=== PATIENT | female | born 1975 | race Caucasian/White ===

== ENCOUNTER → 2024-08-21 09:56 | Outpatient (BNVA) | payer OTHER, SELFPAY | PROVIDERS: PCP Internal Medicine; Visit Provider Internal Medicine | DX: Z00.01 Encounter for general adult medical examination with abnormal findings (principal); F41.1 Generalized anxiety disorder; F33.42 Major depressive disorder, recurrent, in full remission; E66.09 Other obesity due to excess calories; Z68.32 Body mass index [BMI] 32.0-32.9, adult; Z71.3 Dietary counseling and surveillance | CPT/HCPCS: 96127; 99212; 99396 ==

== ENCOUNTER → 2024-09-18 13:34 | Outpatient (BNV) | payer OTHER, SELFPAY | PROVIDERS: PCP Internal Medicine; Visit Provider Internal Medicine | DX: Z12.31 Encounter for screening mammogram for malignant neoplasm of breast (principal) | CPT/HCPCS: 77063; 77067 ==

== ENCOUNTER 2024-10-10 10:19 | Outpatient (REF) | payer OTHER, SELFPAY ==
--- NOTE | ~2024-10-10 | US_ITS ---
EXAMINATION: MM DIAGNOSTIC DIGITAL BREAST TOMOSYNTHESIS, RIGHT CLINICAL INFORMATION: Call back from screening for new oval mass in the retroareolar region of the right breast. COMPARISON: Mammography: [facility] on PACS. TECHNIQUE: Digital breast tomosynthesis is performed in both the craniocaudal and mediolateral oblique views along with computer-aided detection (CAD). Synthesized 2D images are generated from the tomosynthesis. FINDINGS: There are scattered areas of fibroglandular density (ACR BI-RADS breast composition Category b). There is a 2 cm oval mass in the retroareolar region of the right breast anterior depth. No suspicious calcifications or other abnormal findings. Targeted color Doppler ultrasound demonstrates a hypoechoic oval circumscribed solid mass at 3:00 retroareolar region measuring 19 x 16 x 13 mm with some internal vascular flow. This correlates with the mammographic oval mass. US/US breast RT limited mamm only IMPRESSION: New oval mass at 3:00 retroareolar region of the right breast. Six-month follow-up versus ultrasound-guided core needle biopsy was offered to the patient. The patient prefers ultrasound-guided core needle biopsy at this time for confirmation. The findings and recommendations were discussed with the patient the procedure will be scheduled. ASSESSMENT: BI-RADS BI-RADS 4 - Suspicious finding RECOMMENDATION: Biopsy recommended Results were provided to the patient at time of visit by the technologist. This patient's information was entered into a reminder system with a target due date for their next mammogram. Electronically signed by: Keira Hills DO 10/10/2024 12:48 PM EDT
== END 2024-10-10 10:20 | disposition home or self-care (01) ==
LOC: HO.MAMMO 10:19
PROVIDERS: PCP Internal Medicine; Visit Provider Internal Medicine
DX: R92.2 Inconclusive mammogram (principal)
CPT/HCPCS: 76642; 77061; 77065

== ENCOUNTER → 2024-10-10 10:30 | Outpatient (BNV) | payer OTHER, SELFPAY | PROVIDERS: PCP Internal Medicine; Visit Provider Internal Medicine | DX: R92.8 Other abnormal and inconclusive findings on diagnostic imaging of breast (principal) | CPT/HCPCS: 76642; 77061; 77065 ==

== ENCOUNTER 2024-10-16 08:22 | Outpatient (AMB) | payer OTHER, SELFPAY ==
[2024-10-16 08:25] VITALS: BP 112/61; PULSE 59; O2SAT 97; BMI 33.6
--- NOTE | 2024-10-16 08:25 | A.OFFVIS_ITS ---
Vital Signs 10/16/24 08:25 Height 5 ft 2 in Weight 183 lb 13.848 oz BMI 33.6 BP 112/61 Blood Pressure Location Lt brachial Position Sitting Pulse 59 Pulse Source Pulse Oximeter Pulse Oximetry (%) 97 Oxygen Delivery Method Room Air Intake Visit Reasons: Rt Breast US BX 3 o'clock mass Intake Note: Patient is seen in office for ultrasound biopsy CONSULT right breast 3 o'clock mass. Bx sched:10/17/24 @8am Allergies bee pollen [BEE STINGS] Allergy (Severe, Verified 10/16/24 08:26) SWELLING Environmental Allergy (Intermediate, Uncoded 10/16/24 08:26) Nose Bleed Medication List - Last Reconciled 10/16/24 by Fermin Jeter MD fluoxetine 20 mg PO DAILY fluticasone propionate 50 mcg/actuation 1 spray intranasal BID HPI Comments Details: 49-year-old female presenting with a newly detected right breast mass. On 09/18/2024, she underwent a mammogram which identified a circumscribed, oval mass in the retroareolar region of her right breast, with no associated suspicious calcifications. Subsequent imaging studies conducted on 10/10/2024, including an ultrasound, corroborated the presence of this new oval mass precisely located at the 3 o'clock retroareolar region in the right breast. Given the recent detection of this mass, the patient was presented with the option of a 6-month monitoring period or proceeding with a diagnostic needle biopsy. The mass was classified under BI-RADS category 4, indicating a suspicious abnormality warranting further investigation. She denies a previous history of breast problems or breast surgery. Family history is negative for breast cancer or ovarian cancer. Menarche was at age 16, she is , 1st child born when she was 35. Breastfed both her children. She denies a history of hormone replacement. Her last menstrual period was 2 weeks prior to examination. She was scheduled for an ultrasound-guided core biopsy at the [facility] on 10/17/2024. [facility] Medical History Depression External hemorrhoids with complication Surgical History H/O tubal ligation History of hemorrhoidectomy History of wisdom tooth extraction History of hand surgery H/O section Social History Housing: House Patient Tobacco Use Status: Former Tobacco user Tobacco use type: Cigarette e-Cigarette/Vaping Use: Never Used Second Hand Smoke Exposure: No service: No Current occupational status: employed Current occupational exposures/hazards: No Cognitive needs: No Hearing needs: No Vision needs: No Review of Systems Const All systems reviewed & are unremarkable except as noted in HPI and below Physical Exam Vital Signs: Last Vital Signs Pulse 59 10/16/24 08:25 BP 112/61 10/16/24 08:25 Pulse Ox 97 10/16/24 08:25 Oxygen Delivery Method Room Air 10/16/24 08:25 BMI result Body Mass Index 33.6 Const General: cooperative and no acute distress Nutritional Appearance: well nourished Orientation/consciousness: patient oriented x3 Limitations: no limitations HEENT Head: Yes normocephalic and Yes atraumatic Ears: hearing grossly normal bilaterally Chest Other: Left breast: No skin change, no nipple retraction, no nipple discharge, no palpable mass, no enlarged lymph nodes. Right breast: No skin change, no nipple retraction, no nipple discharge, no palpable mass, no enlarged lymph nodes Resp Effort & Inspection: normal respiratory effort, no audible wheezes, no cough and no respiratory distress Cardio Jugular venous distension: no JVD GI Inspection: Yes normal to inspection Skin Other: Warm, dry, no rash Neuro Other: Mobility Assessment: 1. 3 meter assessment time (seconds) 4 2. Gait observations: Normal balance and gait General: patient oriented x3 Extrem General: Yes no clubbing, cyanosis or edema Assessment & Plan Assessment & Plan (1) Abnormal ultrasound of breast: Code(s): R92.8 - Other abnormal and inconclusive findings on diagnostic imaging of breast Category: Medical (2) Abnormal mammogram of right breast: Code(s): R92.8 - Other abnormal and inconclusive findings on diagnostic imaging of breast Category: Medical Plan 49-year-old female patient with no prior history of breast problems and no family history of breast cancer presenting with a recent mammogram and ultrasound which revealed a density in the right breast at the 03:00 retroareolar location. Findings were felt to be suspicious for malignancy therefore an ultrasound-guided core biopsy is scheduled for 10/17/2024 at the [facility]. Examination did not reveal any suspicious findings in either breast although her breasts were very dense on examination. No other suspicious findings were identified. I reviewed the procedure and discussed next steps following the biopsy. I recommended she return in approximately 1 week to review the pathology results and discuss treatment options. She expressed understanding and agrees with the plan. Coding Level of Care Code New Pt Level 4 (33174) Diagnoses Abnormal ultrasound of breast R92.8 Abnormal mammogram of right breast R92.8
== END 2024-10-16 08:45 | disposition home or self-care (01) ==
LOC: HO.HGS 08:23
PROVIDERS: PCP Internal Medicine; Visit Provider Surgery
DX: R92.8 Other abnormal and inconclusive findings on diagnostic imaging of breast (principal)
CPT/HCPCS: 99204

== ENCOUNTER → 2024-10-16 08:22 | Outpatient (BNVA) | payer OTHER, SELFPAY | PROVIDERS: PCP Internal Medicine; Visit Provider Surgery | DX: R92.8 Other abnormal and inconclusive findings on diagnostic imaging of breast (principal) | CPT/HCPCS: 99202 ==

== ENCOUNTER 2024-10-17 07:43 | Outpatient (REF) | payer OTHER, SELFPAY ==
--- NOTE | ~2024-10-17 | MM_ITS ---
PROCEDURE: ULTRASOUND-GUIDED RIGHT BREAST BIOPSY CLINICAL INFORMATION: Right breast solid mass at 3:00 COMPARISON: [facility] on PACS. TECHNIQUE: The details of the procedure, as well as the risks, benefits, and alternatives to the procedure were explained to the patient in detail and all of her questions were answered, after which, written informed consent was obtained. PROCEDURE: Prior to the procedure, sonography revealed solid mass at 3:00 in the right breast retroareolar. A time-out was performed, the lesion intended for biopsy was targeted and the skin of the right breast was then prepped and draped in the usual sterile fashion. Using sonographic guidance, sterile technique, and 1% lidocaine without epinephrine for local anesthesia, a total of 4 cores were obtained through the targeted area with a 14-gauge biopsy device. At the completion of tissue sampling, a single butterfly metallic clip was deposited at the biopsy site. An appropriate sample was obtained. The postprocedure 2-view direct digital mammogram reveals satisfactory positioning of the biopsy clip. The patient tolerated the procedure well and, after assuring adequate hemostasis, was discharged in good condition after reviewing postbiopsy breast care instructions. Final pathology results are pending. MM/MM tomosynthesis diagnostic RT IMPRESSION: 1. Uncomplicated sonographically-guided core biopsy of the right breast. The 2-view direct digital postprocedure mammogram reveals satisfactory positioning of the biopsy clip. 2. Final pathology results are pending. A separate report with final recommendations will be issued once these results are made available. Electronically signed by: Keira Hills DO 10/17/2024 10:11 AM EDT
[2024-10-17] MEDS: Sodium Bicarbonate 8.4% 50 MEQ/50 ML VIAL SUBCUT (08:33)
[2024-10-17] MEDS: Lidocaine HCl 1 % 20 ML VIAL 9 ML SUBCUT (08:35)
== END 2024-10-17 07:44 | disposition home or self-care (01) ==
LOC: HO.MAMMO 07:43
PROVIDERS: PCP Internal Medicine; Visit Provider Surgery
DX: D24.1 Benign neoplasm of right breast (principal); R92.8 Other abnormal and inconclusive findings on diagnostic imaging of breast; N63.15 Unspecified lump in the right breast, overlapping quadrants
CPT/HCPCS: 19083; 77061; 77065; 88305; A4648; A6260; J2003

== ENCOUNTER → 2024-10-17 07:48 | Outpatient (BNV) | payer OTHER, SELFPAY | PROVIDERS: PCP Internal Medicine; Visit Provider Internal Medicine | DX: N63.15 Unspecified lump in the right breast, overlapping quadrants (principal) | CPT/HCPCS: 19083; 77065 ==

== ENCOUNTER 2025-07-03 09:14 | Outpatient (AMB) | payer BC, SELFPAY ==
[2025-07-03 09:58] VITALS: BP 108/70; PULSE 73; TEMP 36.7; O2SAT 98; BMI 33.7
--- NOTE | 2025-07-03 09:58 | MHC.OFFWIV ---
Intake Vital Signs 07/03/25 09:58 Height 5 ft 2 in Weight 184 lb BMI 33.7 BP 108/70 Blood Pressure Location Rt brachial Position Sitting Pulse 73 Pulse Source Pulse Oximeter Temp 98.1 F Temp Source Oral Pulse Oximetry (%) 98 Oxygen Delivery Method Room Air Intake Visit Reasons: EP right eye irritation, cold symptoms Intake Note: Patient presents c/o left eye irritation, redness, crusted shut this morning. Patient Tobacco Use Status: Former Tobacco user Allergies bee pollen (BEE STINGS) Allergy (Severe, Verified 07/03/25 10:01) SWELLING Environmental Allergy (Intermediate, Uncoded 07/03/25 10:01) Nose Bleed Do you need a note to return to daycare/school/sports/work: Yes HPI HPI Comments History of Present Illness Details Patient is a 49yo F who presents with L eye discharge and redness Cold symptoms since Tuesday No fever or chills No glasses or contacts No trauma or injury to eyes Used hot water this morning to help Matted shut with discharge this am Discharged has been re-occurig all morning Vision blurry L side + congestion, cough; green phlegm + ear pain aching bilaterally and ST + body aches and fatigue No covid testing at home Sick family at home, daughter + Flu A [facility] Medical History Depression External hemorrhoids with complication Surgical History H/O tubal ligation History of hemorrhoidectomy History of wisdom tooth extraction History of hand surgery H/O section Social History Housing: House Patient Tobacco Use Status: Former Tobacco user Tobacco use type: Cigarette e-Cigarette/Vaping Use: Never Used Second Hand Smoke Exposure: No service: No Current occupational status: employed Current occupational exposures/hazards: No Cognitive needs: No Hearing needs: No Vision needs: No Review of Systems Const Reports body aches, Denies chills, Reports fatigue and Denies fever(s) Eyes Details: L eye Reports blurry vision, Reports eye discharge and Reports irritation ENT Denies dizziness, Reports otalgia, Reports nasal congestion and Reports sore throat Card Denies chest pain Resp Reports cough Musc Reports myalgias Skin/Breast Denies rash Neuro Denies dizziness Endo Reports fatigue Physical Exam Exam Exam: General: Non-toxic, NAD. Speaking full sentences. Skin: Warm dry throughout, no periorbital edema, erythema or lesions Eye: EOMI, PERRLA. + L eye conjunctival erythema with small amount of yellow discharge noted to lower lid. No FB noted under L lower eyelid HENT: Airway patent. Uvula midline. No pharyngeal erythema or edema. 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 Bilateral canals clear. TM slightly-erythematous, non-bulging. No TM perforation or hemotympanum noted. Respiratory: CTA bilaterally. No wheezes, rales or rhonchi Cardiac: RRR. No murmur MSK: Full ROM extremities. Neurology: Alert. No aphasia or facial droop. Gait without abnormality Psych: Good mood and affect Vital Signs: Last Vital Signs Temp 98.1 F 07/03/25 09:58 Pulse 73 07/03/25 09:58 BP 108/70 07/03/25 09:58 Pulse Ox 98 07/03/25 09:58 Oxygen Delivery Method Room Air 07/03/25 09:58 BMI result Body Mass Index 33.7 Assessment & Plan Assessment & Plan (1) Conjunctivitis: Code(s): H10.9 - Unspecified conjunctivitis Qualifiers: Conjunctivitis type: acute Acute conjunctivitis type: bacterial Laterality: left Qualified Code(s): H10.32 - Unspecified acute conjunctivitis, left eye Plan: Patient seen and evaluated. + L bacterial conjunctivitis at this visit Antibiotic drops Discussed hand hygiene and clean pillowcase Lungs CTA; daughter has Flu A. Pt outside timeframe for tamiflu Tessalon for cough Patient gave verbal understanding and had no additional questions or concerns at time of discharge All questions answered Medications: New benzonatate 100 mg PO BID-TID PRN 14 caps 0RF cough ofloxacin 0.3% put 1-2 drps into affected eye(s) every 4 h while awake x 2 days, then 1-2 drps 4 times/day days 3-7 ophthalmic (eye) 10 mL 0RF Coding Level of Care Code Est Pt Level 3 (74632) Diagnoses Acute bacterial conjunctivitis of left eye H10.32 Conjunctivitis type: acute Acute conjunctivitis type: bacterial Laterality: left
== END 2025-07-03 10:26 | disposition home or self-care (01) ==
PROVIDERS: PCP Internal Medicine; Visit Provider Physician Assistant
DX: H10.32 Unspecified acute conjunctivitis, left eye (principal)